=== PATIENT | female | born 1945 | race Caucasian/White ===

== ENCOUNTER 2017-07-28 19:50 | Emergency (ER) | payer OTHER ==
[2017-07-28 20:01] VITALS: BP 157/97
--- NOTE | 2017-07-28 20:40 | EDPHY ---
H & P Time Seen by Provider: 07/28/17 20:15 HPI/ROS: CHIEF COMPLAINT: Left foot pain HISTORY OF PRESENT ILLNESS: Patient is a 72-year-old female presents emergency department after injuring her left foot. The patient is visiting from [place]. She was playing with her granddaughter at the playground when she misstepped. She felt sudden pain in her left foot. It is moderate. It is not radiate. It is worse with ambulation. No numbness or tingling. No other injury. No previous foot injury. REVIEW OF SYSTEMS: Negative Past Medical/Surgical History: Includes breast cancer and mastectomy Smoking Status: Never smoked Physical Exam: Vitals noted General Appearance: [Alert and no distress]. Head: [Pupils equal. Normal]. Respiratory: [No respiratory distress]. Cardiac: [regular rate and rhythm]. Extremities: [The patient's left foot is mildly swollen anterior laterally. There is mild discoloration. There is no erythema or warmth. Patient has mild tenderness to palpation with no crepitus. No med at tarsal tenderness palpation. Cuboid bones are mildly tender. No medial malleolar tenderness.]. Skin: No rashes or lesions. Neuro: [Alert. Normal mood and affect]. Constitutional: Initial Vital Signs Temperature (C) 36.7 C 07/28/17 19:58 Heart Rate 92 07/28/17 19:58 Respiratory Rate 18 07/28/17 19:58 Blood Pressure 157/97 H 07/28/17 19:58 O2 Sat (%) 97 07/28/17 19:58 O2 Delivery Mode Room Air Allergies/Adverse Reactions: Sulfa (Sulfonamide Antibiotics) Allergy (Verified 07/28/17 20:01) Home Medications: Medication Instructions Recorded Metformin HCl 500 07/28/17 Medical Decision Making ED Course/Re-evaluation: In the emergency department I discussed possible etiologies with the patient. I answered all her questions. Ice pack was placed. X-ray was ordered. Left foot x-ray: No fracture dislocation. Please refer the dictated report I discussed the results with the patient. I answered all her questions. She was given a [place] boot. Patient was given warnings prior to leaving. She will return with worsening symptoms. Differential Diagnosis: My differential includes but is not limited to fracture, dislocation, contusion , sprain, strain Departure - Departure Disposition: Home, Routine, Self-Care Clinical Impression: Left foot pain Condition: Good Instructions: Foot Sprain (ED) Additional Instructions: Your x-ray did not show any broken bones. You likely sprained her foot. Wear splint for comfort. Follow up with Orthopedics. Referrals: Kael Delgadillo MD [Medical Doctor] - 5-7 days, if not improved
== END 2017-07-28 22:20 | disposition home or self-care (01) ==
DX: S99.922A Unspecified injury of left foot, initial encounter (principal); Z85.3 Personal history of malignant neoplasm of breast; X50.9XXA Other and unspecified overexertion or strenuous movements or postures, initial encounter; Y92.89 Other specified places as the place of occurrence of the external cause; Y99.8 Other external cause status; Y93.89 Activity, other specified
CPT/HCPCS: 73610; 73630; 99283; L4386